=== PATIENT | female | born 1990 | race Caucasian/White ===

== ENCOUNTER 2018-05-19 18:37 | Emergency (ER) | payer SELFPAY ==
[2018-05-19] MEDS ORDERED: IBUPROFEN 200 MG TAB PO ONE (19:13)
[2018-05-19] MEDS ORDERED: ONDANSETRON ODT 8 MG TAB SL ONE (19:13)
[2018-05-19] MEDS ORDERED: FAMOTIDINE 20 MG TAB PO ONE (19:36)
[2018-05-19] MEDS ORDERED: SUCRALFATE 1 GM/10 ML 1 GM UD PO ONE (19:36)
--- NOTE | 2018-05-19 20:28 | ED.PDOC ---
History of Present Illness - General Chief Complaint: Fever Stated Complaint: body aches, chills Time Seen by Provider: 05/19/18 19:13 Source: patient Exam Limitations: no limitations - History of Present Illness Initial Comments: the patient's 27-year-old female presenting to the emergency room after 12 hours of fever with a mild runny nose and a mild sore throat along with some mild nausea and 2 episodes of vomiting. She has had body aches as well. No urinary symptoms. No diarrhea. She has mild vague abdominal pain that is primarily in the epigastric to left upper quadrant area. She does have a fever here currently but had only taken Tylenol early in the morning.the patient does not really seem to be able to stop texting long enough to have a medical in [facility].The patient reports that she is not . Timing/Duration: other - 12 hours Severity: moderate Improving Factors: nothing Worsening Factors: nothing Associated Symptoms: diaphoresis, fever/chills, loss of appetite, malaise, nausea/vomiting Allergies/Adverse Reactions: Allergies NO KNOWN ALLERGY Allergy (Verified 10/30/14 07:17) Home Medications: Ambulatory Orders Esomeprazole Magnesium [Nexium] 40 mg PO DAILY 11/25/14 Ferrous Sulfate [Feosol Tab] 325 mg PO QD #100 tab 11/25/14 Ibuprofen [Motrin Tab] 600 mg PO Q8H #20 tab 11/25/14 Norethindrone (Contraceptive) [Rachael] 0.35 mg PO QAM #90 tab 11/25/14 Vit W/ Ferrous Fumara [] 1 tab PO DAILY 11/25/14 Ondansetron [Zofran Odt] 4 mg PO Q4H PRN #10 tab 05/19/18 Review of Systems - Review of Systems Constitutional: States: fever, malaise EENTM: States: nose congestion, throat pain Respiratory: States: no symptoms reported Cardiology: States: no symptoms reported Gastrointestinal/Abdominal: States: nausea, vomiting Genitourinary: States: no symptoms reported Musculoskeletal: States: no symptoms reported Skin: States: no symptoms reported Neurological: States: no symptoms reported, headache Endocrine: States: no symptoms reported All other Systems: No Change from Baseline Past Medical History (General) - Patient Medical History Hx Stroke: No Hx Asthma: No Hx Cardiac Disorders: No Hx Thyroid Disease: No Hx Diabetes: No Hx Renal Disease: No Hx Cancer: No Hx Hepatitis C: No Surgical History: cholecystectomy - Vaccination History Hx Tetanus, Diphtheria Vaccination: No Hx Influenza Vaccination: No Hx Pneumococcal Vaccination: No Immunizations Up to Date: Yes - Social History Hx Tobacco Use: No Hx Alcohol Use: No Hx Substance Use: No Feels Threatened In a Relationship: No Hx Physical Abuse: No Hx Emotional Abuse: No Hx Suspected Abuse: No - Female History Patient is a Female of Child Bearing Age (10 -59 yrs old): Yes Hx Last Menstrual Period: 03/07/14 Patient : No Expected Date of Delivery:: 11/24/14 Family Medical History - Family History Father Hx Family Hypertension: Yes Hx Cardiac Disease: Yes Hx Family Diabetes: Yes - uncles Hx Family Cancer: Yes - uncles Brother Hx Cardiac Disease: Yes Mother Family History: Unknown Living Status: Hx Family Hypertension: Yes Hx Cardiac Disease: Yes Hx Family Diabetes: Yes Hx Family Cancer: Yes - uncles Physical Exam - Physical Exam General Appearance: Alert, Comfortable, No apparent distress Eye Exam: bilateral normal Ears, Nose, Throat: hearing grossly normal, nasal congestion, pharyngeal erythema - mild Neck: full range of motion, supple Respiratory: lungs clear, normal breath sounds, no respiratory distress, no accessory muscle use Cardiovascular/Chest: normal peripheral pulses, no edema, tachycardia, other Peripheral Pulses: radial,right: 2+, radial,left: 2+, dorsalis pedis,right: 2+, dorsalis pedis,left: 2+ Gastrointestinal/Abdominal: non tender, soft, other - morbidly obese Progress - Progress Progress: 05/19/18 20:29 the patient is a 27-year-old female presenting to the emergency room with what appears to be a viral syndrome. She has tested negative for flu and strep. She has received Motrin Zofran and Carafate and Pepcid here. She is feeling somewhat better. She will be written for Zofran to control any add itional nausea and vomiting. She can take [id number] Pepcid 20 mg twice daily for the next week to help reduce any gastritis symptoms additionally. She is to avoid any nicotine or caffeine and she needs to avoid large, hot or spicy meals. ER warnings were given for any significant worsening. Follow up with primary care doctor later this coming week. Departure - Departure Clinical Impression: Viral syndrome Disposition: Discharge to Home or Self Care Condition: Fair Departure Forms: ED Discharge - Pt. Copy, Patient Portal Self Enrollment Diet: bland diet Activity: increase activity as tolerated Prescriptions: Ondansetron [Zofran Odt] 4 mg PO Q4H PRN #10 tab PRN Reason: Vomiting Home Medications: Ambulatory Orders Esomeprazole Magnesium [Nexium] 40 mg PO DAILY 11/25/14 Ferrous Sulfate [Feosol Tab] 325 mg PO QD #100 tab 11/25/14 Ibuprofen [Motrin Tab] 600 mg PO Q8H #20 tab 11/25/14 Norethindrone (Contraceptive) [Rachael] 0.35 mg PO QAM #90 tab 11/25/14 Vit W/ Ferrous Fumara [] 1 tab PO DAILY 11/25/14 Ondansetron [Zofran Odt] 4 mg PO Q4H PRN #10 tab 05/19/18 Additional Instructions: the patient is a 27-year-old female presenting to the emergency room with what appears to be a viral syndrome. She has tested negative for flu and strep. She has received Motrin Zofran and Carafate and Pepcid here. She is feeling somewhat better. She will be written for Zofran to control any additional nausea and vomiting. She can take [id number] Pepcid 20 mg twice daily for the next week to help reduce any gastritis symptoms additionally. She is to avoid any nicotine or caffeine and she needs to avoid large, hot or spicy meals. ER warnings were given for any significant worsening. Follow up with primary care doctor later this coming week.
[2018-05-19 20:44] VITALS: BP 129/80; TEMP 99.9; O2SAT 98
== END 2018-05-19 20:44 | disposition home or self-care (01) ==
LOC: ER 18:37
DX: B34.9 Viral infection, unspecified (principal)

== ENCOUNTER 2018-07-10 18:15 | Emergency (ER) | payer SELFPAY ==
[2018-07-10 18:32] VITALS: O2SAT 98
[2018-07-10] MEDS ORDERED: HYDROcodone 7.5MG/APAP 325MG 1 EA TAB PO ONE (18:52)
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
[2018-07-10 19:56] VITALS: BP 135/86; TEMP 98.2
== END 2018-07-10 19:56 | disposition home or self-care (01) ==
LOC: ER 18:15
DX: S00.03XA Contusion of scalp, initial encounter (principal); S16.1XXA Strain of muscle, fascia and tendon at neck level, initial encounter; V49.49XA Driver injured in collision with other motor vehicles in traffic accident, initial encounter; Y92.410 Unspecified street and highway as the place of occurrence of the external cause

== ENCOUNTER 2018-09-01 00:45 | Emergency (ER) | payer SELFPAY ==
--- NOTE | 2018-09-01 01:12 | ED.PDOC ---
History of Present Illness - General Chief Complaint: ENT Problem Stated Complaint: sore throat x1 week Time Seen by Provider: 09/01/18 01:00 Source: patient Exam Limitations: no limitations - History of Present Illness Initial Comments: Irineo Henderson 28 y/o female came to ER with achy throat for the last one week,had also occasional cough;No fever or chills.no ill contact. Timing/Duration: last week Severity: moderate EENT Location: throat Prearrival Treatment: no prearrival treatment Presenting Symptoms: sore throat Improving Factors: nothing Worsening Factors: nothing Associated Symptoms: sore throat Allergies/Adverse Reactions: Allergies NO KNOWN ALLERGY Allergy (Verified 07/10/18 18:32) Home Medications: Ambulatory Orders Esomeprazole Magnesium [Nexium] 40 mg PO DAILY 11/25/14 Ferrous Sulfate [Feosol Tab] 325 mg PO QD #100 tab 11/25/14 Ibuprofen [Motrin Tab] 600 mg PO Q8H #20 tab 11/25/14 Norethindrone (Contraceptive) [Rachael] 0.35 mg PO QAM #90 tab 11/25/14 Vit W/ Ferrous Fumara [] 1 tab PO DAILY 11/25/14 Ondansetron [Zofran Odt] 4 mg PO Q4H PRN #10 tab 05/19/18 Cyclobenzaprine HCl [Flexeril] 5 mg PO TID PRN #20 tab 07/10/18 Amoxicillin [Amoxil] 1,000 mg PO BID 7 Days #30 cap 09/01/18 Review of Systems - Review of Systems Constitutional: States: no symptoms reported EENTM: States: throat pain Cardiology: States: see HPI All other Systems: Reviewed and Negative, No Change from Baseline Past Medical History (General) - Patient Medical History Hx Stroke: No Hx Asthma: No Hx Cardiac Disorders: No Hx Congestive Heart Failure: No Hx Thyroid Disease: No Hx Diabetes: No Hx Renal Disease: No Hx Cancer: No Hx Hepatitis C: No Surgical History: cholecystectomy, other - c-sections - Vaccination History Hx Tetanus, Diphtheria Vaccination: No Hx Influenza Vaccination: No Hx Pneumococcal Vaccination: No - Social History Hx Tobacco Use: No Hx Alcohol Use: No Hx Substance Use: No Hx Physical Abuse: No Hx Emotional Abuse: No Hx Suspected Abuse: No - Female History Hx Last Menstrual Period: 08/19/18 Patient : No Family Medical History - Family History Father Hx Family Hypertension: Yes Hx Cardiac Disease: Yes Hx Family Diabetes: Yes - several family members Hx Family Cancer: Yes - mom -kidney Brother Hx Cardiac Disease: Yes Mother Family History: Unknown Living Status: Hx Family Hypertension: Yes Hx Cardiac Disease: Yes Hx Family Diabetes: Yes Hx Family Cancer: Yes - uncles Physical Exam - Physical Exam General Appearance: Alert, No apparent distress Eye Exam: bilateral normal Ear Exam: right ear: auricle normal, canal normal, TM red, left ear: TM normal Nasal Exam: normal inspection, other - mucosal swelling Throat Exam: other - pharyngeal erythema Neck: non-tender, full range of motion, supple, normal inspection, trachea midline Cardiovascular/Respiratory: regular rate, rhythm, no M/R/G, normal peripheral pulses, normal breath sounds Abdominal Exam: non-tender, no organomegaly Skin Exam: normal color, warm/dry Progress - Progress Progress: 09/01/18 01:16 Vital Signs - 8 hr 09/01/18 01:05 Temperature 98.8 F Pulse Rate [ 89 left] Respiratory 18 Rate Blood Pressure 142/94 [left] O2 Sat by Pulse 98 Oximetry - Results/Orders Results/Orders: Laboratory Results - last 24 hr 09/01/18 01:20 Group A Strep Rapid Positive Departure - Departure Clinical Impression: Strep sore throat Otitis media Qualifiers: Otitis media type: unspecified Laterality: right Qualified Code(s): H66.91 - O titis media, unspecified, right ear Time of Disposition: 01:32 Disposition: Discharge to Home or Self Care Condition: Fair Departure Forms: ED Discharge - Pt. Copy, Patient Portal Self Enrollment Instructions: Strep Throat (DC), Ear Infections (Otitis Media) (DC) Prescriptions: Amoxicillin [Amoxil] 1,000 mg PO BID 7 Days #30 cap Home Medications: Ambulatory Orders Esomeprazole Magnesium [Nexium] 40 mg PO DAILY 11/25/14 Ferrous Sulfate [Feosol Tab] 325 mg PO QD #100 tab 11/25/14 Ibuprofen [Motrin Tab] 600 mg PO Q8H #20 tab 11/25/14 Norethindrone (Contraceptive) [Rachael] 0.35 mg PO QAM #90 tab 11/25/14 Vit W/ Ferrous Fumara [] 1 tab PO DAILY 11/25/14 Ondansetron [Zofran Odt] 4 mg PO Q4H PRN #10 tab 05/19/18 Cyclobenzaprine HCl [Flexeril] 5 mg PO TID PRN #20 tab 07/10/18 Amoxicillin [Amoxil] 1,000 mg PO BID 7 Days #30 cap 09/01/18 Additional Instructions: May take Motrin(over the counter)3 tablets 3 x a day for pain.
[2018-09-01 01:13] VITALS: TEMP 98.8; O2SAT 98
[2018-09-01] MEDS ORDERED: cefTRIAXone SODIUM 1 GM VIAL IM ONE (01:32)
[2018-09-01] MEDS ORDERED: predniSONE 20 MG TAB PO ONE (01:32)
[2018-09-01] MEDS ORDERED: HYDROcodone 10MG/APAP 325MG 1 EA TAB PO ONE (01:39)
[2018-09-01] MEDS ORDERED: LIDOCAINE 1% 10 ML VIAL INJ ONE (01:49)
[2018-09-01 02:23] VITALS: BP 132/68
== END 2018-09-01 02:09 | disposition home or self-care (01) ==
LOC: ER 00:45
DX: J02.0 Streptococcal pharyngitis (principal); H66.91 Otitis media, unspecified, right ear
CPT/HCPCS: 87880; J0696; J7512

== ENCOUNTER 2019-05-09 19:21 | Emergency (ER) | payer SELFPAY ==
[2019-05-09 19:46] VITALS: TEMP 102.1; O2SAT 97
[2019-05-09] MEDS: IBUPROFEN 200 MG TAB PO ONE (20:00)
--- NOTE | 2019-05-09 20:51 | RAD ---
EXAM DESCRIPTION: Chest,2 Views CLINICAL HISTORY: 28 years Female, cough and fever COMPARISON: None. FINDINGS: No consolidation. No pneumothorax. No significant pleural effusion. Cardiomediastinal silhouette is unremarkable. Osseous structures are unremarkable. IMPRESSION: No acute findings. Electronically signed by: Angelito Glover MD 05/09/2019 8:50 PM [employer]IST
--- NOTE | 2019-05-09 21:21 | ED.PDOC ---
History of Present Illness - General Chief Complaint: Respiratory Problem Stated Complaint: cough and fever Time Seen by Provider: 05/09/19 19:54 Source: patient, RN notes reviewed, Vital Signs reviewed Exam Limitations: no limitations - History of Present Illness Comments: Patient is a 28-year-old morbidly obese female who presents with complaints of body aches, fever and cough that started yesterday. Her children have both been diagnosed with influenza B. Her throat is also sore. It is scratchy in nature. It is moderate in intensity. Worse with cough or swallowing food. Improved with swallowing cold liquid. Patient denies any headache, blurry vision, neck pain. Patient also denies any chest pain, nausea, vomiting or diarrhea. She does have shortness of breath along with fever. Timing/Duration: yesterday Cough Quality/Degree: moderate, dry cough Possible Cause: illness exposure Improving Factors: nothing Worsening Factors: nothing Associated Symptoms: chest pain/soreness - Chest soreness with cough or deep inspiration., cough, fever/chills, nasal congestion, shortness of breath, sore throat Allergies/Adverse Reactions: Allergies NO KNOWN ALLERGY Allergy (Verified 07/10/18 18:32) Home Medications: Ambulatory Orders Esomeprazole Magnesium [Nexium] 40 mg PO DAILY 11/25/14 Ferrous Sulfate [Feosol Tab] 325 mg PO QD #100 tab 11/25/14 Ibuprofen [Motrin Tab] 600 mg PO Q8H #20 tab 11/25/14 Norethindrone (Contraceptive) [Rachael] 0.35 mg PO QAM #90 tab 11/25/14 Vit W/ Ferrous Fumara [] 1 tab PO DAILY 11/25/14 Ondansetron [Zofran Odt] 4 mg PO Q4H PRN #10 tab 05/19/18 Cyclobenzaprine HCl [Flexeril] 5 mg PO TID PRN #20 tab 07/10/18 Amoxicillin [Amoxil] 1,000 mg PO BID 7 Days #30 cap 09/01/18 Oseltamivir Capsule [Tamiflu] 75 mg PO BID 5 Days #10 capsule 05/09/19 Review of Systems - Review of Systems Constitutional: States: see HPI, chills, fever EENTM: States: see HPI Respiratory: States: see HPI, cough, short of breath. Denies: wheezing Cardiology: States: no symptoms reported Gastrointestinal/Abdominal: States: no symptoms reported Genitourinary: States: no symptoms reported Musculoskeletal: States: see HPI, back pain Skin: States: no symptoms reported Neurological: States: no symptoms reported Endocrine: States: no symptoms reported Hematologic/Lymphatic: States: no symptoms reported All other Systems: Reviewed and Negative Past Medical History (General) - Patient Medical History Hx Seizures: No Hx Stroke: No Hx Dementia: No Hx Asthma: No Hx of COPD: No Hx Cardiac Disorders: No Hx Congestive Heart Failure: No Hx Pacemaker: No Hx Hypertension: No Hx Thyroid Disease: No Hx Diabetes: No Hx Gastroesophageal Reflux: No Hx Renal Disease: No Hx Cancer: No Hx of HIV: No Hx Hepatitis C: No Hx MRSA: No Surgical History: cholecystectomy - Vaccination History Hx Tetanus, Diphtheria Vaccination: Yes Hx Influenza Vaccination: No Hx Pneumococcal Vaccination: No - Social History Hx Tobacco Use: No Hx Chewing Tobacco Use: No Hx Alcohol Use: No Hx Substance Use: No Hx Substance Use Treatment: No Hx Depression: No Feels Threatened In Home Enviroment: No Feels Threatened In a Relationship: No Hx Physical Abuse: No Hx Emotional Abuse: No Hx Suspected Abuse: No - Female History Patient is a Female of Child Bearing Age (10 -59 yrs old): Yes Hx Last Menstrual Period: 08/19/18 Patient : No Expected Date of Delivery:: 11/24/14 - Triage Comment ED Triage Comment: Fever, Sore throat and chills. Patient's child just gettion over flu. Family Medical History - Family History Father Hx Family Hypertension: Yes Hx Cardiac Disease: Yes Hx Family Diabetes: Yes - several family members Hx Family Cancer: Yes - mom -kidney Brother Hx Cardiac Disease: Yes Mother Family History: Unknown Living Status: Hx Family Hypertension: Yes Hx Cardiac Disease: Yes Hx Family Diabetes: Yes Hx Family Cancer: Yes - uncles Physical Exam - Physical Exam General Appearance: Alert, Anxious, Well Developed, Well Groomed, Well Hydrated, Well Nourished Eye Exam: bilateral normal ENT Exam: normal ENT inspection, pharynx normal Neck: non-tender, full range of motion, supple, normal inspection, trachea midline Respiratory: chest non-tender, no respiratory distress, no accessory muscle use, rhonchi - Diffusely throughout Cardiovascular/Chest: normal peripheral pulses, no edema, no gallop, no JVD, no murmur, tachycardia - To the 120s Extremity: normal range of motion, non-tender, normal inspection, no pedal edema, no calf tenderness 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 05/09/19 21:23 Patient is positive for influenza B. Plan on discharge home with a prescription for Tamiflu. I discussed the plan of care with the patient and she voices understanding and agreement. 05/09/19 21:24 Sohan Schneider M.D. #[id number] - Results/Orders Results/Orders: 05/09/19 20:01 STREP A SCREEN CULTURE Stat Laboratory Results - last 24 hr 05/09/19 20:01 Group A Strep Rapid Negative Influenza B positive EXAM DESCRIPTION: Chest,2 Views CLINICAL HISTORY: 28 years Female, cough and fever COMPARISON: None. FINDINGS: No consolidation. No pneumothorax. No significant pleural effusion. Cardiomediastinal silhouette is unremarkable. Osseous structures are unremarkable. IMPRESSION: No acute findings. 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 Copy, Patient Portal Self Enrollment Instructions: Flu, Adult (DC) Prescriptions: Oseltamivir Capsule [Tamiflu] 75 mg PO BID 5 Days #10 capsule Home Medications: Ambulatory Orders Esomeprazole Magnesium [Nexium] 40 mg PO DAILY 11/25/14 Ferrous Sulfate [Feosol Tab] 325 mg PO QD #100 tab 11/25/14 Ibuprofen [Motrin Tab] 600 mg PO Q8H #20 tab 11/25/14 Norethindrone (Contraceptive) [Rachael] 0.35 mg PO QAM #90 tab 11/25/14 Vit W/ Ferrous Fumara [] 1 tab PO DAILY 11/25/14 Ondansetron [Zofran Odt] 4 mg PO Q4H PRN #10 tab 05/19/18 Cyclobenzaprine HCl [Flexeril] 5 mg PO TID PRN #20 tab 07/10/18 Amoxicillin [Amoxil] 1,000 mg PO BID 7 Days #30 cap 09/01/18 Oseltamivir Capsule [Tamiflu] 75 mg PO BID 5 Days #10 capsule 05/09/19 Comments: Follow-up with your primary care physician in 3 to 5 days if you are not feeling better.
[2019-05-09] MEDS: OSELTAMIVIR 75 MG CAP PO ONE (21:43)
[2019-05-09 21:47] VITALS: BP 102/83
== END 2019-05-09 21:45 | disposition home or self-care (01) ==
LOC: ER 19:21
DX: J10.1 Influenza due to other identified influenza virus with other respiratory manifestations (principal); E86.0 Dehydration; R00.0 Tachycardia, unspecified